=== PATIENT | female | born 1970 | race Caucasian/White ===

== ENCOUNTER 2021-03-06 07:05 | Inpatient (IN) | payer OTHER ==
[2021-02-28 14:52] LABS: BASOPHILS # (AUTO) 0.1 X10'3 (0-0.2); BASOPHILS % (AUTO) 1.1 % (0-1); EOSINOPHILS # (AUTO) 0.1 X10'3 (0-0.9); EOSINOPHILS % (AUTO) 0.9 % (0-6); LYMPHOCYTES # (AUTO) 2.6 X10'3 (1.1-4.8); LYMPHOCYTES % (AUTO) 36.5 % (21-51); MEAN CORPUSCULAR HEMOGLOBIN 28.4 PG (27.0-31.0); MEAN CORPUSCULAR HGB CONC 32.5 g/dL (33.0-36.5); MEAN CORPUSCULAR VOLUME 87.3 FL (78-98); MEAN PLATELET VOLUME 7.7 FL (7.4-10.4); MONOCYTES # (AUTO) 0.4 X10'3 (0-0.9); MONOCYTES % (AUTO) 5.9 % (2-12); NEUTROPHILS % (AUTO) 55.6 % (42-75); PRE OP HEMATOCRIT 40.9 % (35.0-45.0); PRE OP HEMOGLOBIN 13.3 g/dL (12.0-16.0); PRE OP PLATELET COUNT 415 X10'3 (140-440); RED BLOOD COUNT 4.68 X10'6 (4.20-5.60); RED CELL DISTRIBUTION WIDTH 14.1 % (11.5-14.5)
[2021-02-28 15:07] LABS: ALBUMIN 3.9 G/DL (3.4-5.0); ALBUMIN/GLOBULIN RATIO 0.9 (1.1-1.5); ALKALINE PHOSPHATASE 92 IU/L (46-116); BLOOD UREA NITROGEN 11 MG/DL (7-18); BUN/CREATININE RATIO 14.1 (6.6-38.0); CALCIUM 9.1 MG/DL (8.5-10.1); CHLORIDE 104 MMOL/L (99-107); CREATININE 0.78 MG/DL (0.40-0.90); PRE OP ALT 20 U/L (30-65); PRE OP ANION GAP 10 (8-16); PRE OP AST 16 U/L (10-37); PRE OP BILIRUB, TOTAL 0.6 MG/DL (0.0-1.0); PRE OP GLUCOSE 86 MG/DL (70-104); PRE OP POTASSIUM 3.8 MMOL/L (3.4-5.1); PRE OP SODIUM 143 MMOL/L (135-145); TOTAL CARBON DIOXIDE 29.5 MMOL/L (24-32); TOTAL PROTEIN 8.1 G/DL (6.4-8.2); eGFR 78 ML/MIN
[~2021-03-06] VITALS: Ht 177.8 cm; Wt 113.8 kg
[2021-03-06] VITALS (17 sets, daily range): BP systolic 90–116; BP diastolic 49–77
[~2021-03-06 07:05] MED LIST: BUPR150T8 PO; EST1T PO; clindamycin-Cleocin 900mg/D5W 50 ML IV ONE; famotidine 20mg tablet PO ONE; ringers solution, lacted 1,000 ML IV SCH; vancomycin 1,500 MG in NS 300ml IV soln IV ONE
[2021-03-06] MEDS ORDERED: scopolamine 1.5mg patch.TD72 (72-hour patch) TD ONE (07:55)
[2021-03-06] MEDS ORDERED: scopolamine 1mg/72 hr patch TD ONE (08:05)
[2021-03-06] MEDS ORDERED: ROPIVAcaine 0.5% (5mg/ml) 30ml vial ONE ×2 (08:42→10:18)
[2021-03-06] MEDS ORDERED: ketorolac trometh. 30mg/ml inj. ONE (08:42)
[2021-03-06] MEDS ORDERED: desflurane 240ml liquid inh. IH ONE (09:18)
[2021-03-06] MEDS ORDERED: succinylcholine 20mg/ml inj IV ONE (09:18)
[2021-03-06] MEDS ORDERED: midazolam 1 mg/ML 2ml injection ONE (09:24)
[2021-03-06] MEDS ORDERED: fentaNYL/PF 50MCG/1 ML 2ML syringe ONE (09:24)
[2021-03-06] MEDS ORDERED: acetaminophen 1,000mg/100ml IV 100 ML IV ONE (10:17)
[2021-03-06] MEDS ORDERED: propofol inj 20 ML IV ONE (10:17)
[2021-03-06] MEDS ORDERED: LIDOcaine 2% (20mg/ml) 5ml vial ONE (10:17)
[2021-03-06] MEDS ORDERED: dexamethasone sod phosphate 4mg/ml inj. ONE (10:18)
[2021-03-06] MEDS ORDERED: ondansetron/PF 4mg/2ml inj ONE (10:18)
[2021-03-06] MEDS ORDERED: morphine 4 MG/ML inj SYRINge IV PRN (10:30)
[2021-03-06] MEDS ORDERED: fentaNYL/PF 50MCG/1 ML 2ML syringe IV PRN ×2 (10:30)
[2021-03-06] MEDS ORDERED: labetalol 20mg/4ml (5mg/ml) syringe IV PRN (10:30)
[2021-03-06] MEDS ORDERED: morphine 2 MG/ML inj. syringe IV PRN (10:30)
[2021-03-06] MEDS ORDERED: ondansetron/PF 4mg/2ml inj IV PRN ×2 (10:30→11:30)
[2021-03-06] MEDS ORDERED: ringers solution, lacted 1,000 ML IV SCH (10:30)
[2021-03-06] MEDS ORDERED: hydrALAZINE 20mg/ml inj. IV PRN (10:30)
[2021-03-06] MEDS ORDERED: ROPIVAcaine 0.2% (10 MG/5 ML) BOLUS INJECTION INTERSCALE PRN (10:30)
[2021-03-06] MEDS ORDERED: oxyCODONE IR 5mg (immed. release) tablet PO PRN ×2 (11:30)
[2021-03-06] MEDS ORDERED: bisacodyl 10mg suppository rectal RC PRN (11:30)
[2021-03-06] MEDS ORDERED: magnesium hydroxide 30ml (MOM) UD suspension PO PRN (11:30)
[2021-03-06] MEDS ORDERED: diphenhydrAMINE 25mg capsule PO PRN ×2 (11:30)
[2021-03-06] MEDS ORDERED: acetaminophen 325mg tablet PO PRN (11:30)
[2021-03-06] MEDS ORDERED: HYDROmorphone 1 mg/ml syringe IV PRN (11:30)
[2021-03-06] MEDS ORDERED: HYDROmorphone inj. 0.5 MG/0.5 ML DISP.SYRIN IV PRN (11:30)
--- NOTE | 2021-03-06 11:35 | NUR ---
ADMITTED TO PACU FROM OR ACCOMPANIED BY ANESTHESIA. INTIAL PHYSICAL ASSESSMENT DONE AND RECORDED. REPORT RECEIVED FROM ANESTHESIA.
[2021-03-06] MEDS: ROPIVAcaine 0.2%/PF PUMP/bolus 545 ML INTERSCALE SCH (12:00)
--- NOTE | 2021-03-06 12:30 | NUR ---
Patient in room ORTHO 4015. I have received report from GRACE PATRICK in PACU and had the opportunity to ask questions and assume patient care. Pt arrived to floor at 1245
--- NOTE | 2021-03-06 12:35 | NUR ---
PACU DISCHARGE CRITERIA MET, REPORT GIVEN TO FLOOR. DENIES PAIN OR DISCOMFORT. PT IS STABLE AND ADEQUATELY RECOVERED FROM ANESTHESIA. PT HAS STABLE AIRWAY PATENCY, RESPIRATORY FUNCTION TO INCLUDE RESPIRATORY RATE AND O2 SAT. HEART RATE, BLOOD PRESSURE STABLE AND HYDRATION ADEQUATE. MENTAL STATUS IS APPROPRIATE. PAIN AND NAUSEA CONTROLLED. REFER TO PACU SPREADSHEET FOR VITAL SIGNS.
[2021-03-06] MEDS: ceFAZolin/D5W- 1GM premix 50 ML IV SCH (16:51)
[2021-03-06] MEDS: acetaminophen 325mg tablet PO SCH ×2 (16:52→21:37)
--- NOTE | 2021-03-06 18:44 | NUR ---
Patient in room ORTH[facility] 4015. I have received report from GRACE Soriano and had the opportunity to ask questions and assume patient care.
[2021-03-06] MEDS: potassium cl 20mEq in 1/2 NS 1,000 ML IV SCH ×2 (19:30→19:49)
[2021-03-06] MEDS ORDERED: vancomycin/NS 1 GM ADD-VANTAGE 250 ML IV SCH (20:00)
--- NOTE | 2021-03-06 21:00 | NUR ---
Patient refusing home cpap and requesting to continue using O2 instead.
[2021-03-06] MEDS: sennosides 8.6mg tablet PO SCH (21:37)
[2021-03-07] MEDS: ceFAZolin/D5W- 1GM premix 50 ML IV SCH (00:28)
[2021-03-07 02:00] VITALS: BP 119/66
[2021-03-07] MEDS: acetaminophen 325mg tablet PO SCH ×4 (02:37→22:32)
[2021-03-07] MEDS: potassium cl 20mEq in 1/2 NS 1,000 ML IV SCH ×4 (03:30→19:30)
[2021-03-07 06:00] VITALS: BP 101/60
--- NOTE | 2021-03-07 06:29 | NUR ---
Patient in room ORTHO 4015A. I have received report from GRACE REEDER and had the opportunity to ask questions and assume patient care.
--- NOTE | 2021-03-07 06:33 | NUR ---
Problems reprioritized. Patient report given, questions answered & plan of care reviewed with GRACE Soriano.
[2021-03-07 06:38] LABS: BASOPHILS % (AUTO) 0.2 % (0-1); EOSINOPHILS % (AUTO) 0 % (0-6); HEMATOCRIT 35.2 % (35.0-45.0); HEMOGLOBIN 11.2 g/dl (12.0-16.0); LYMPHOCYTES # (AUTO) 1.3 X10'3 (1.1-4.8); LYMPHOCYTES % (AUTO) 9.8 % (21-51); MEAN CORPUSCULAR HGB CONC 31.9 g/dL (33.0-36.5); MEAN PLATELET VOLUME 8.4 FL (7.4-10.4); MONOCYTES # (AUTO) 0.6 X10'3 (0-0.9); MONOCYTES % (AUTO) 4.2 % (2-12); NEUTROPHILS # (AUTO) 11.5 X10'3 (1.8-7.7); NEUTROPHILS % (AUTO) 85.8 % (42-75); PLATELET COUNT 329 X10'3 (140-440); RED CELL DISTRIBUTION WIDTH 14.6 % (11.5-14.5); WHITE BLOOD COUNT 13.4 X10'3 (4.5-11.0)
[2021-03-07 07:15] LABS: ANION GAP 12 (8-16); CHLORIDE 106 MMOL/L (99-107); POTASSIUM 4.6 MMOL/L (3.5-5.1); SODIUM 140 MMOL/L (135-145); TOTAL CARBON DIOXIDE 22.1 MMOL/L (24-32)
[2021-03-07] MEDS: buPROPion SR 150mg tablet PO SCH ×2 (07:41→22:30)
[2021-03-07] MEDS: estradiol 1mg tablet PO SCH (07:41)
[2021-03-07] MEDS: aspirin 325mg tablet PO SCH (07:42)
[2021-03-07 10:00] VITALS: BP 116/64
--- NOTE | 2021-03-07 12:03 | NUR ---
Joint Surgery Consult: Pt s/p R shoulder surgery this admit seen by RD for written/verbal high protein ed w/ ensure ONS coupons and RD contact information provided. Pt hx gastric sleeve reports receives monthly B12 injection and takes routine MVI. Pt is agreeable to cottage cheese w/ alhaji FUENTSE; dietary notified. Addendum: 03/07/21 at [address] Amended: Links added.
[2021-03-07 14:00] VITALS: BP 119/65
[2021-03-07 18:00] VITALS: BP 110/67
--- NOTE | 2021-03-07 18:39 | NUR ---
Problems reprioritized. Patient report given, questions answered & plan of care reviewed with GRACE Moore.
[2021-03-07 22:00] VITALS: BP 119/75
[2021-03-07] MEDS: sennosides 8.6mg tablet PO SCH (22:31)
[2021-03-08] MEDS: acetaminophen 325mg tablet PO SCH ×2 (01:56→07:39)
[2021-03-08] MEDS: potassium cl 20mEq in 1/2 NS 1,000 ML IV SCH (03:30)
[2021-03-08 06:00] VITALS: BP 136/79
--- NOTE | 2021-03-08 06:31 | NUR ---
Patient in room ORTHO 4015A. I have received report from GRACE CRUZ and had the opportunity to ask questions and assume patient care.
[2021-03-08 07:16] LABS: BASOPHILS # (AUTO) 0.1 X10'3 (0-0.2); EOSINOPHILS % (AUTO) 0.2 % (0-6); HEMATOCRIT 33.1 % (35.0-45.0); HEMOGLOBIN 10.6 g/dl (12.0-16.0); LYMPHOCYTES # (AUTO) 3.4 X10'3 (1.1-4.8); LYMPHOCYTES % (AUTO) 27.2 % (21-51); MEAN CORPUSCULAR HEMOGLOBIN 28.7 PG (27.0-31.0); MEAN CORPUSCULAR HGB CONC 32.2 g/dL (33.0-36.5); MEAN CORPUSCULAR VOLUME 89.2 FL (78-98); MEAN PLATELET VOLUME 8.5 FL (7.4-10.4); MONOCYTES # (AUTO) 0.8 X10'3 (0-0.9); MONOCYTES % (AUTO) 6.2 % (2-12); NEUTROPHILS # (AUTO) 8.2 X10'3 (1.8-7.7); NEUTROPHILS % (AUTO) 65.4 % (42-75); PLATELET COUNT 310 X10'3 (140-440); RED BLOOD COUNT 3.71 X10'6 (4.20-5.60); RED CELL DISTRIBUTION WIDTH 14.5 % (11.5-14.5); WHITE BLOOD COUNT 12.6 X10'3 (4.5-11.0)
[2021-03-08] MEDS: buPROPion SR 150mg tablet PO SCH (07:38)
[2021-03-08] MEDS: estradiol 1mg tablet PO SCH (07:39)
[2021-03-08] MEDS: aspirin 325mg tablet PO SCH (07:39)
[2021-03-08 10:00] VITALS: BP 120/42
[2021-03-08] MEDS ORDERED: ASPI-1 PO (10:19)
[2021-03-08] MEDS: ROPIVAcaine 0.2%/PF PUMP/bolus 545 ML INTERSCALE SCH (10:30)
[2021-03-08] MEDS ORDERED: acetaminophen 325mg tablet PO PRN (11:30)
--- NOTE | 2021-03-08 13:58 | NUR ---
D/C INSTRUCTIONS GIVEN TO PT AND QUESTIONS ANSWERED. BELONGINGS GATHERED BY NURSE AND SENT WITH PT. IV D/C'D, CANNULA INTACT, NO COMPLICATIONS. D/C'D PT IN STABLE CONDITION TO HOME IN PRIVATE VEHICLE ACCOMPANIED BY SON. PT LEFT FLOOR AT 1350
== END 2021-03-08 13:50 | disposition home or self-care (01) | DRG 483 ==
LOC: UNDOADMIN 07:05 → PAS IN 07:05 → ORTHO 4S 12:45
PROVIDERS: ADMIT Orthopaedic Surgery; ATTEND Orthopaedic Surgery
PROC: 3E0T33Z Introduction of Anti-inflammatory into Peripheral Nerves and Plexi, Percutaneous Approach (ICD-10-PCS; 2021-03-06)
PROC: 0RRJ00Z Replacement of Right Shoulder Joint with Reverse Ball and Socket Synthetic Substitute, Open Approach (ICD-10-PCS; 2021-03-06)
PROC: 0LS30ZZ Reposition Right Upper Arm Tendon, Open Approach (ICD-10-PCS; 2021-03-06)
PROC: 3E0T3BZ Introduction of Anesthetic Agent into Peripheral Nerves and Plexi, Percutaneous Approach (ICD-10-PCS; principal; 2021-03-06 09:18)
DX: M19.011 Primary osteoarthritis, right shoulder (principal); Z60.2 Problems related to living alone; M75.121 Complete rotator cuff tear or rupture of right shoulder, not specified as traumatic; G47.30 Sleep apnea, unspecified; E66.9 Obesity, unspecified; G43.909 Migraine, unspecified, not intractable, without status migrainosus; F41.9 Anxiety disorder, unspecified; F32.9 Major depressive disorder, single episode, unspecified; Z79.899 Other long term (current) drug therapy; Z79.82 Long term (current) use of aspirin; Z68.36 Body mass index [BMI] 36.0-36.9, adult
CPT/HCPCS: Z7506; Z7508; 36415; 71046; 80051; 80053; 82948; 85025; 87081; 97110; 97161; 97530; A4565; A4618; A7000; C1776; G0378; J0131; J0330; J0690; J1100; J1885; J2001; J2250; J2405; J2704; J2795; J3010; J3370; J3480; J3490; J7040; J7120; U0003; U0005